=== PATIENT | female | born 1965 | race Caucasian/White ===

== ENCOUNTER → 2020-08-14 | Outpatient (REF) ==
--- NOTE | 2020-08-14 14:45 | REP ---
INDICATION: PAIN. COMPARISON: None. TECHNIQUE: Single frontal view of the pelvis FINDINGS: No acute fracture or dislocation. Sacroiliac joints are symmetric and relatively age-appropriate. The bilateral hip joints demonstrate minimal joint space narrowing and marginal spurring along the acetabular roof. 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 <Electronically signed by Navneet Avila > 08/14/20 [id number]
--- NOTE | 2020-08-14 14:47 | REP ---
INDICATION: PAIN COMPARISON: None. TECHNIQUE: AP, lateral, coned-down views of the lumbar spine. FINDINGS: Three views of the lumbosacral spine demonstrate satisfactory alignment and lordosis without acute fracture / compression injury or subluxation. Generalized age-related changes are appreciated with very minimal endplate sclerosis, very subtle marginal spurring and elements of facet hypertrophy. Disc spaces are relatively well maintained by radiographic evaluation. IMPRESSION: 1. No acute fracture / compression injury or subluxation. 2. Generalized age-related changes. <Electronically signed by Navneet Avila > 08/14/20 [id number]
== END ==
LOC: M PLAIMG 13:51
PROVIDERS: ATTEND Internal Medicine
DX: Z02.71 Encounter for disability determination (principal)